=== PATIENT | male | born 1990 | race Caucasian/White ===

== ENCOUNTER 2022-01-20 14:36 | Emergency (ER) | payer SELFPAY ==
[2022-01-20 14:48] VITALS: BP 147/97; PULSE 108; RESP 18; TEMP 36.6; O2SAT 98; BMI 24.0
--- NOTE | 2022-01-20 14:52 | XRR_ITS ---
PROCEDURE INFORMATION: Exam: XR Left Finger(s) Exam date and time: 01/20/2022 3:24 PM Age: 31 years old Clinical indication: Injury or trauma; Other: Laceration; Left; Ring finger; Additional info: Injury, left ring finger TECHNIQUE: Imaging protocol: Radiologic exam of the Left fingers. Views: Minimum 2 views. COMPARISON: No relevant prior studies available. FINDINGS: Bones/joints: Appearance of a tiny 2 mm ossific fragment versus radiopaque foreign body inferior to the wound site. Otherwise the distal phalanx is intact. Soft tissues: Wound along the lateral distal tip of the 4th digit. XR/XR finger LT min 2V [id number] IMPRESSION: Appearance of a tiny 2 mm ossific fragment versus radiopaque foreign body inferior to the wound site along the lateral distal tip of the 4th digit. Otherwise, the distal phalanx of the 4th digit is intact.
--- NOTE | 2022-01-20 15:51 | W.ED.UPPEXIN ---
HPI - Extremity Injury (Upper) General: Chief Complaint: Extremity Injury, Upper Stated Complaint: left finger lac Time Seen by Provider: 01/20/22 15:37 Source: patient Mode of arrival: ambulatory Limitations: no limitations History of Present Illness: Patient is a 31-year-old male who presents to ED today for Worker's Comp. injury to his left ring finger that he sustained just prior to arrival after smashing it between metal. Tetanus is up-to-date. No other injuries or complaints at this time. complaint: injury to: left and finger Onset (ago): hour(s) Other injuries: none Place: work Severity: moderate Context: crush Associated symptoms: Reports no associated symptoms Treatments prior to arrival: bandage Review of Systems Musc: Reports: extremity pain (L 4th finger); Denies: joint pain, joint swelling or joint redness Skin/Breast: Reports: other (laceration/distal tip amputation) Neuro: Denies: numbness in extremities or sensory changes [facility] ED PFSH: Medical History Adult attention deficit disorder Physical Exam Const: COMMON NORMALS: no acute distress, patient oriented x3, no limitations, alert and well nourished Extremity: GENERAL: Yes normal exam except as noted LEFT UPPER EXTREMITY: Yes hand & digits OTHER: pt has a laceration and complete nail avulsion of the L distal 4th finger; laceration extends into nail bed and around to palmar pad; there is complete disruption of the nail fold; no obvious bony injury noted Neuro: COMMON NORMALS: patient oriented x3 SENSORIUM/ORIENTATION: Yes alert Procedures Laceration Laceration 1: Site: hand (L 4th finger) Side (If applicable): left Size (cm): 1.5 Description: irregular and other (disruption of nail bed/nail fold) Depth: [id number] Local Anesthetic: lidocaine 1% (digital block) Amount of anesthesia used (mL): 2.0 Pre-repair: wound explored and irrigated extensively Skin layer closed with: nylon and vicryl Size (cm): 4-0 Number of sutures: 8 Technique: simple, interrupted Course Vital Signs: Vital signs: Vital Signs Temperature 98 F 01/20/22 16:09 Pulse Rate 108 H 01/20/22 16:09 Respiratory Rate 18 01/20/22 16:09 Blood Pressure 147/97 01/20/22 16:09 Pulse Oximetry 98 01/20/22 16:09 Oxygen Delivery Me thod 01/20/22 16:09 MDM - Extremity Injury (Upper) Medical Decision Making XR showing a very tiny fragment that could be bony injury versus foreign body. Wound was copiously irrigated and repaired. Nail was completely avulsed therefore removed. He did have fairly extensive damage to his nail bed and nail fold that was repaired as best as possible. Counselled on how it is unlikely he will be able to regrow a nail here. Will place on antibiotics and have him follow up with Worker's Comp and they can refer to ortho/hand if needed. Tetanus UTD. He was given IM Ancef prior to DC. Lab Data Radiology Impressions Finger X-Ray 01/20/22 14:52 IMPRESSION: Appearance of a tiny 2 mm ossific fragment versus radiopaque foreign body inferior to the wound site along the lateral distal tip of the 4th digit. Otherwise, the distal phalanx of the 4th digit is intact. Discharge Plan Discharge Patient Disposition: Home Clinical Impression: Avulsion of nail of left ring finger Open fracture of distal phalanx of left index finger Qualifiers: Encounter type: initial encounter Fracture alignment: nondisplaced Qualified Code(s): S62.661B - Nondisplaced fracture of distal phalanx of left index finger, initial encounter for open fracture Condition: Stable Prescriptions: New hydrocodone-acetaminophen 5-325 mg tablet 1 tab PO Q6H PRN (Reason: pain) Qty: 14 0RF cephalexin 500 mg capsule 500 mg PO Q6H 7 Days Qty: 28 0RF No Action dextroamphetamine-amphetamine [Adderall] 10 mg tablet 10 mg PO BID 30 Days Qty: 60 0RF Rx Instructions: administer doses at least 4-6 hours apart Discharge Orders: Discharge ED (Routine); Ordered 01/20/22 Ordered By: Carmel Bauman Patient Instructions: Opioid Safety Activity Restrictions/Additional Instructions: As we discussed please follow-up with Worker's Comp. as soon as possible for re-evaluation and possible referral to orthopedics. Keep wound clean with warm soap and water several times daily. Monitor for signs of infection such as redness, swelling, drainage, red streaking up your hand or arm, fevers, or any other concerns you may have. 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
[2022-01-20 16:09] VITALS: BP 147/97; PULSE 108; RESP 18; TEMP 36.6; O2SAT 98
[2022-01-20] MEDS: ceFAZolin 1,000 mg SDV 1000 MG IM (17:24)
== END 2022-01-20 18:01 | disposition home or self-care (01) ==
PROVIDERS: Emergency Provider Physician Assistant
DX: S62.661B Nondisplaced fracture of distal phalanx of left index finger, initial encounter for open fracture (principal); S61.305A Unspecified open wound of left ring finger with damage to nail, initial encounter; W23.0XXA Caught, crushed, jammed, or pinched between moving objects, initial encounter; Y99.0 Civilian activity done for income or pay
CPT/HCPCS: 11760; 73140; 96372; 99284; J0690

== ENCOUNTER 2022-03-17 08:04 | Emergency (ER) | payer OTHER, SELFPAY ==
[2022-03-17 08:05] VITALS: BP 152/95; PULSE 114; RESP 16; TEMP 36.9; O2SAT 99; BMI 25.8
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
[2022-03-17 08:50] VITALS: BP 152/95; PULSE 114; RESP 16; TEMP 36.9; O2SAT 99
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
[2022-03-17 09:01] LABS: Basophils % 0.2 %; Hematocrit 42.6 % (42.0-52.0); Hemoglobin 14.2 g/dL (11.7-16.6); Mean Corpuscular HGB Conc 33.3 g/dL (30.0-36.0); Mean Corpuscular Hemoglobin 29.8 pg (28.0-34.0); Mean Corpuscular Volume 89.3 fl (80-94); Mean Platelet Volume 9.7 fL (7.4-10.4); Monocytes # 1.6 10^3/uL (0.2-0.9); Monocytes % 8.2 %; Neutrophils # 16.37 10^3/uL (1.8-7.7); Neutrophils % 85.7 %; Nucleated Red Blood Cells % 0 %; Platelet Count 284 10^3/cmm (130-400); Red Blood Count 4.77 10^6/uL (4.1-5.3); Red Cell Distribution Width 13.1 % (12.1-15.1); White Blood Count 19.1 10^3/uL (4.0-10.0)
[2022-03-17 09:24] LABS: Blood Urea Nitrogen 12 mg/dL (6-20); Calcium 9.6 mg/dL (8.5-10.5); Carbon Dioxide 27 mmol/L (22-29); Chloride 96 mmol/L (98-107); Glomerular Filtration Rate 114.3 mL/min (90-130); Glucose 111 mg/dL (65-115); Osmolality Calculated 282 mOsm/kg (285-295); Sodium 136 mmol/L (136-145)
[2022-03-17 09:25] LABS: Anion Gap 17.3 (5-19); Potassium 4.3 mmol/L (3.5-5.1)
[2022-03-17] MEDS: iohexol 350 mg/mL 100 mL Btl IV (09:35)
[2022-03-17 09:36] LABS: Add Urine Microscopic? NO; Charge for UA Resulting for Rev
[2022-03-17 09:46] LABS: Bilirubin Urine Neg (Negative); Blood Urine Neg (Negative); Glucose Urine UA Norm (Normal); Ketones Urine Negative (Negative); Leukocyte Esterase Urine Negative (Negative); Nitrate Urine Negative (Negative); Protein Urine Neg (Negative); Sulfosalicylic Acid Urine Negative (Negative); Urine Appearance Clear (CLEAR); Urine Color Yellow (Yellow); Urobilinogen Urine 1 mg/dL (Negative); pH Urine 8 (5-7)
[2022-03-17 10:44] VITALS: BP 145/83; PULSE 100; RESP 16; TEMP 36.9; O2SAT 99
--- NOTE | 2022-03-17 11:04 | PC.SOCIAL ---
Addendum entered by Phoebe Cruz 03/26/22 13:27: Patient had a follow up with ENT - patient attended appointment Patient had a follow up appointment with ortho - patient did attend appointment. Original Note: Ortho and ENT follow ups. Messages sent to ortho and ENT scheduling for f/u appointments. Clinics will contact patient with appointment date and time.
== END 2022-03-17 10:46 | disposition home or self-care (01) ==
PROVIDERS: Emergency Provider Family Medicine; PCP Nurse Practitioner Family
DX: S02.32XA Fracture of orbital floor, left side, initial encounter for closed fracture (principal); S02.40DA Maxillary fracture, left side, initial encounter for closed fracture; S02.40FA Zygomatic fracture, left side, initial encounter for closed fracture; S52.122A Displaced fracture of head of left radius, initial encounter for closed fracture; S52.042A Displaced fracture of coronoid process of left ulna, initial encounter for closed fracture; V86.55XA Driver of 3- or 4- wheeled all-terrain vehicle (ATV) injured in nontraffic accident, initial encounter
CPT/HCPCS: 70450; 70486; 71260; 72125; 73060; 73080; 74177; 80048; 81003; 85025; 99285; Q9967

== ENCOUNTER 2022-03-19 16:14 | Outpatient (CLI) | payer OTHER, SELFPAY | END 2022-03-19 16:15 | disposition home or self-care (01) | LOC: SPT 16:14 | PROVIDERS: PCP Nurse Practitioner Family; Visit Provider Specialist | DX: Z46.89 Encounter for fitting and adjustment of other specified devices (principal); S52.122D Displaced fracture of head of left radius, subsequent encounter for closed fracture with routine healing; S52.042D Displaced fracture of coronoid process of left ulna, subsequent encounter for closed fracture with routine healing; X58.XXXD Exposure to other specified factors, subsequent encounter | CPT/HCPCS: 97760; L3761 ==

== ENCOUNTER 2022-03-26 07:17 | Outpatient (CLI) | payer OTHER, SELFPAY ==
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
== END 2022-03-26 07:18 | disposition home or self-care (01) ==
LOC: RAD 07:19
PROVIDERS: PCP Family Medicine; Visit Provider Specialist
DX: S42.132A Displaced fracture of coracoid process, left shoulder, initial encounter for closed fracture; V86.99XA Unspecified occupant of other special all-terrain or other off-road motor vehicle injured in nontraffic accident, initial encounter; M25.422 Effusion, left elbow; S52.122A Displaced fracture of head of left radius, initial encounter for closed fracture
CPT/HCPCS: 73200

== ENCOUNTER → 2022-05-19 14:54 | Outpatient (BNVA) | payer OTHER, SELFPAY | PROVIDERS: PCP Family Medicine; Visit Provider Specialist | DX: S52.122G Displaced fracture of head of left radius, subsequent encounter for closed fracture with delayed healing (principal); S52.042 Displaced fracture of coronoid process of left ulna; X58.XXXD Exposure to other specified factors, subsequent encounter | CPT/HCPCS: 73080 ==